=== PATIENT | female | born 1945 | race Two or more races ===

== ENCOUNTER 2023-12-15 12:05 | Emergency (ER) | payer MEDICARE, OTHER ==
[~2023-12-15] VITALS: Ht 152.4 cm; Wt 68.0 kg
[2023-12-15 13:15] VITALS: BP 134/62; TEMP 98.2
[2023-12-15 14:12] VITALS: O2SAT 100
== END 2023-12-15 14:13 | disposition home or self-care (01) ==
LOC: ER 12:20
DX: B35.1 Tinea unguium (principal); I10 Essential (primary) hypertension; I48.91 Unspecified atrial fibrillation